=== PATIENT | male | born 2000 | race Two or more races ===

== ENCOUNTER 2022-10-16 14:59 | Emergency (ER) | payer OTHER ==
[~2022-10-16] VITALS: Ht 185.4 cm
[2022-10-16] MEDS ORDERED: DIAZEPAM2 MG PO (18:53)
== END 2022-10-16 20:16 | disposition home or self-care (01) ==
LOC: ER 14:59 → EMR PED 14:59
DX: R06.02 Shortness of breath (principal); F12.11 Cannabis abuse, in remission; F14.10 Cocaine abuse, uncomplicated; Z87.891 Personal history of nicotine dependence; F15.10 Other stimulant abuse, uncomplicated; Z20.822 Contact with and (suspected) exposure to COVID-19